=== PATIENT | female | born 1955 | race Caucasian/White ===

== ENCOUNTER 2017-11-21 12:36 | Outpatient (CLI) | payer BC | END 2017-11-21 12:37 | disposition home or self-care (01) | LOC: BICMAMMO 12:36 | PROVIDERS: ATTEND Internal Medicine | DX: Z12.31 Encounter for screening mammogram for malignant neoplasm of breast (principal) | CPT/HCPCS: 77063; 77067 ==

== ENCOUNTER 2018-11-25 09:53 | Outpatient (CLI) | payer BC | END 2018-11-25 09:54 | disposition home or self-care (01) | LOC: BICMAMMO 09:53 | PROVIDERS: ATTEND Internal Medicine | DX: Z12.31 Encounter for screening mammogram for malignant neoplasm of breast (principal) | CPT/HCPCS: 77063; 77067 ==

== ENCOUNTER 2019-11-26 08:40 | Outpatient (CLI) | payer BC ==
--- NOTE | 2019-11-26 11:13 | CT ---
EXAM: CT Pulmonary Lung Scan PROVIDED CLINICAL HISTORY: Nicotine dependence COMPARISON: None FINDINGS: Minimal vascular calcification is demonstrated including coronary calcium. The heart, pericardium and great vessels are suboptimally evaluated in the absence of IV contrast but demonstrate an otherwise unremarkable unenhanced CT appearance. There is minimal bilateral apical pleural-parenchymal scarring-type changes as well as multiple calci fied granulomata within the left upper lobe. Minimal centrilobular emphysematous changes are seen involving each lung apex. Minimal scarring-type changes are seen in the subpleural portions of the li ngula. The lungs are free of significant opacity. There is no pleural fluid, pleural thickening or pneumothorax apparent. The airway appears patent and of normal caliber. Evaluation for thoracic lymph node enlargement is limited given lack of IV contrast, without evidence for such. Bilateral breast implants are noted. The osseous structures demonstrate no concerning lytic or blasti c lesions. The visualized portions of the upper abdomen demonstrate no significant abnormality. IMPRESSION: 1. Lung RADS category 2-benign. Continue annual screening. 2. Vascular calcification including coronary calcium.
--- NOTE | 2019-11-26 12:04 | MMO ---
Bilateral MAMMO Bilat Screen [facility]. CLINICAL HISTORY: Patient is 64 years old and is seen for screening. The patient has no family history of breast cancer. The patient has no personal history of cancer. The patient has a history of bilateral Implants at age 41. VIEWS: The views performed were: bilateral craniocaudal; bilateral craniocaudal with tomosynthesis; bilateral mediolateral oblique; bilateral mediolateral oblique with tomosynthesis; and bilateral Implant displaced with tomosynthesis. FILMS COMPARED: The present examination has been compared to prior imaging studies performed at [facility] on 06/09/2015, 10/16/2016, 11/21/2017 and 11/25/2018. This study has been interpreted with the assistance of computer-aided detection. MAMMOGRAM FINDINGS: There are scattered fibroglandular densities. Normal implants are present. There are no suspicious masses, suspicious calcifications, or new areas of architectural distortion. IMPRESSION: THERE IS NO MAMMOGRAPHIC EVIDENCE OF MALIGNANCY. A ROUTINE FOLLOW-UP MAMMOGRAM IN 1 YEAR IS RECOMMENDED. THE RESULTS OF THIS EXAM WERE SENT TO THE PATIENT. ACR BI-RADS Category 2 - Benign finding MAMMOGRAPHY NOTE: 1. A negative mammogram report should not delay a biopsy if a dominant of clinically suspicious mass is present. 2. Approximately 10% to 15% of breast cancers are not detected by mammography. 3. Adenosis and dense breasts may obscure an underlying neoplasm. Reported by: NEGRA MONTERO MD Electonically Signed: [id number]
== END 2019-11-26 08:41 | disposition home or self-care (01) ==
LOC: CT 08:40
PROVIDERS: ATTEND Internal Medicine
DX: Z12.2 Encounter for screening for malignant neoplasm of respiratory organs (principal); F17.210 Nicotine dependence, cigarettes, uncomplicated; I25.10 Atherosclerotic heart disease of native coronary artery without angina pectoris
CPT/HCPCS: 77063; 77067; G0297

== ENCOUNTER 2020-02-19 09:35 | Outpatient (CLI) | payer BC ==
--- NOTE | 2020-02-19 11:20 | BD ---
BONE DENSITOMETRY USING DEXA: Date: 02/19/2020 HISTORY: Postmenopausal screening for osteoporosis. FINDINGS: Lumbar Spine: BMD (g/cm2) L1 0.994 T-Score: 0.0 Z-Score: 1.5 L2 0.933 T-Score: -0.9 Z-Score: 0.8 L3 1.102 T-Score: 0.2 Z-Score: 1.9 L4 1.000 T-Score: -0.6 Z-Score: 1.2 L1-L4 1.012 T-Score: -0.3 Z-Score: 1.3 Femoral Neck: 0.828 T-Score: -0.2 Z-Score: 1.2 Total Femur: 0.955 T-Score: 0.1 Z-Score: 1.2 IMPRESSION: Normal bone mineral density. POS: [facility]
== END 2020-02-19 09:36 | disposition home or self-care (01) ==
LOC: BICMAMMO 09:35
PROVIDERS: ATTEND Internal Medicine Rheumatology
DX: Z13.820 Encounter for screening for osteoporosis (principal); M05.79 Rheumatoid arthritis with rheumatoid factor of multiple sites without organ or systems involvement; M54.5 Low back pain; Z79.899 Other long term (current) drug therapy; Z92.22 Personal history of monoclonal drug therapy
CPT/HCPCS: 77080

== ENCOUNTER 2020-12-09 10:02 | Outpatient (CLI) | payer BC | END 2020-12-09 10:03 | disposition home or self-care (01) | LOC: BICMAMMO 10:02 | PROVIDERS: ATTEND Internal Medicine | DX: Z12.31 Encounter for screening mammogram for malignant neoplasm of breast (principal); Z98.82 Breast implant status | CPT/HCPCS: 77063; 77067 ==

== ENCOUNTER 2021-10-10 10:51 | Outpatient (CLI) | payer MEDICARE | END 2021-10-10 10:52 | disposition home or self-care (01) | LOC: BICRAD 10:51 | PROVIDERS: ATTEND Internal Medicine Rheumatology | DX: Z13.820 Encounter for screening for osteoporosis (principal); M05.79 Rheumatoid arthritis with rheumatoid factor of multiple sites without organ or systems involvement; E55.9 Vitamin D deficiency, unspecified; M54.50 Low back pain, unspecified; Z92.22 Personal history of monoclonal drug therapy; Z79.899 Other long term (current) drug therapy ==

== ENCOUNTER 2022-02-19 09:56 | Outpatient (CLI) | payer MEDICARE | END 2022-02-19 09:57 | disposition home or self-care (01) | LOC: BICMAMMO 09:56 | PROVIDERS: ATTEND Internal Medicine | DX: Z13.820 Encounter for screening for osteoporosis (principal); Z78.0 Asymptomatic menopausal state; M85.88 Other specified disorders of bone density and structure, other site | CPT/HCPCS: 77080 ==

== ENCOUNTER 2022-03-30 11:51 | Outpatient (CLI) | payer MEDICARE, BC | END 2022-03-30 11:52 | disposition home or self-care (01) | LOC: BICRAD 11:51 | PROVIDERS: ATTEND Family Medicine | DX: M47.816 Spondylosis without myelopathy or radiculopathy, lumbar region (principal) | CPT/HCPCS: 72100 ==

== ENCOUNTER 2023-01-28 09:11 | Outpatient (CLI) | payer BC, MEDICARE | END 2023-01-28 09:12 | disposition home or self-care (01) | LOC: BICMAMMO 09:11 → CT 09:12 | PROVIDERS: ATTEND Internal Medicine | DX: Z12.31 Encounter for screening mammogram for malignant neoplasm of breast (principal); Z12.2 Encounter for screening for malignant neoplasm of respiratory organs; Z98.82 Breast implant status; Z91.89 Other specified personal risk factors, not elsewhere classified | CPT/HCPCS: 71271; 77063; 77067 ==

== ENCOUNTER 2025-06-23 08:49 | Outpatient (CLI) | payer OTHER | END 2025-06-23 08:50 | disposition home or self-care (01) | LOC: BICCT 08:49 | PROVIDERS: ATTEND Internal Medicine | DX: Z12.2 Encounter for screening for malignant neoplasm of respiratory organs (principal); F17.210 Nicotine dependence, cigarettes, uncomplicated | CPT/HCPCS: 71271 ==

== ENCOUNTER 2025-08-20 09:32 | Outpatient (CLI) | payer OTHER | END 2025-08-20 09:33 | disposition home or self-care (01) | LOC: BICMAMMO 09:32 | PROVIDERS: ATTEND Internal Medicine | DX: Z12.31 Encounter for screening mammogram for malignant neoplasm of breast (principal); Z98.82 Breast implant status | CPT/HCPCS: 77063; 77067 ==